=== PATIENT | female | born 1985 | race Caucasian/White ===

== ENCOUNTER 2017-07-12 16:59 | Emergency (ER) | payer OTHER ==
[2017-07-12 17:00] VITALS: BMI 24.3
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
[2017-07-12 17:37] VITALS: TEMP 98.1; O2SAT 100
[2017-07-12 21:08] VITALS: BP 135/78; PULSE 75; RESP 18
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
--- NOTE | 2017-07-13 09:17 | RAD ---
PROCEDURE: Cervical Spine Radiographs. HISTORY: Pain. COMPARISON: None. FINDINGS: BONES: Reversal of the anatomic lordosis with kyphosis. Degree: Mild. No fracture identified. Patch that Dens Intact. DISC SPACES: Normal. SOFT TISSUES: Normal. No prevertebral soft tissue swelling. OTHER FINDINGS: None. IMPRESSION: Reversal of normal anatomic lordosis with mild kyphosis. Otherwise unremarkable study. Concordant results with the preliminary interpretation rendered by the emergency department physician procedure.
== END 2017-07-12 21:10 | disposition home or self-care (01) ==
LOC: ED 16:59
DX: S16.1XXA Strain of muscle, fascia and tendon at neck level, initial encounter (principal); V03.90XA Pedestrian on foot injured in collision with car, pick-up truck or van, unspecified whether traffic or nontraffic accident, initial encounter; Y92.410 Unspecified street and highway as the place of occurrence of the external cause; M25.562 Pain in left knee; M25.561 Pain in right knee